=== PATIENT | female | born 1950 | race American Indian/Alaskan Native ===

== ENCOUNTER 2020-05-10 08:32 | Emergency (ER) | payer MEDICARE ==
--- NOTE | 2020-05-10 08:44 | Event Note ---
ED Screening Note ED Screening Note: diabetic - blood sugars high and she is dizzy and weak polyuria taking her meds did not make a pcp appnt last week This initial assessment/diagnostic orders/clinical plan/treatment(s) is/are subject to change based on patients health status, clinical progression and re- assessment by fellow clinical providers in the ED. Further treatment and workup at subsequent clinical providers discretion. Patient/guardian urged not to elope from the ED as their condition may be serious if not clinically assessed and managed. Initial orders include: labs/xray/ekg
[2020-05-10] MEDS ORDERED: SODIUM CHLORIDE 0.9% 1000 ML 1,000 ML IV ONE (09:14)
[2020-05-10 09:26] LABS: Basophils # (Auto) 0.1 K/mm3 (0.0-0.1); Basophils % (Auto) 0.9 % (0.0-1.8); Eosinophils # (Auto) 0.1 K/mm3 (0.0-0.4); Eosinophils % (Auto) 1.9 % (0.0-4.3); Hematocrit 41.6 % (30.3-42.9); Hemoglobin 13.9 gm/dl (10.1-14.3); Lymphocytes # (Auto) 2.2 K/mm3 (1.2-5.4); Lymphocytes % (Auto) 30.5 % (13.4-35.0); Mean Corpuscular HGB Conc 34 % (30-34); Mean Corpuscular Volume 88 fl (79-97); Monocytes # (Auto) 0.4 K/mm3 (0.0-0.8); Monocytes % (Auto) 5.1 % (0.0-7.3); Platelet Count 289 K/mm3 (140-440); Red Blood Count 4.72 M/mm3 (3.65-5.03); Red Cell Distribution Width 12.9 % (13.2-15.2)
[2020-05-10 09:37] VITALS: BP 126/54
[2020-05-10 09:45] LABS: Alanine Aminotransferase 14 units/L (7-56); Albumin 4.2 g/dL (3.9-5); Blood Urea Nitrogen 13 mg/dL (7-17); Calcium 9.9 mg/dL (8.4-10.2); Hemolysis Index 0
[2020-05-10 09:56] LABS: BUN/Creatinine Ratio 19
--- NOTE | 2020-05-10 10:03 | Cat Scan Report ---
NONENHANCED CT SCAN OF THE HEAD: INDICATION / CLINICAL INFORMATION: 69 years Female; headache. TECHNIQUE: Routine CT head without contrast. All CT scans at this location are performed using CT dos e reduction for ALARA by means of automated exposure control. COMPARISON: None. FINDINGS: BRAIN / INTRACRANIAL CONTENTS: No acute hemorrhage, mass effect, midline shift, hydrocephalus, or acu te, large territorial infarct. No chronic infarct or focal atrophy. Normal brain volume and ventricul ar/sulcal size for age. Focal low-attenuation white matter lesions probably due to chronic small vess el disease CRANIOCERVICAL JUNCTION: No significant abnormality ORBITS: No significant abnormality of visualized orbits. SINUSES / MASTOIDS: No significant abnormality of the visualized paranasal sinuses or mastoid air joleen ls. ADDITIONAL FINDINGS: None. IMPRESSION: No acute focal parenchymal lesion Signer Name: Chuy Bonner MD Signed: 05/10/2020 9:58 AM Workstation Name: [id number]
--- NOTE | 2020-05-10 11:29 | XRay Report ---
CHEST 1 VIEW INDICATION: hypertension. COMPARISON: None FINDINGS: Support devices: None. Heart: Within normal limits. Lungs/Pleura: No acute air space or interstitial disease. Additional findings: None. IMPRESSION: No acute findings. Signer Name: Jean Pike Jr, MD Signed: 05/10/2020 11:24 AM Workstation Name: [id number]
[2020-05-10 11:54] LABS: Bilirubin,Urine NEG (Negative); Blood,Urine NEG (Negative); Color,Urine Yellow (Yellow); Mucus,Urine FEW /HPF; Protein,Urine <15 mg/dL mg/dL (Negative); Urobilinogen,Urine < 2.0 mg/dL (<2.0)
--- NOTE | 2020-05-10 12:15 | Emergency Department Report ---
ED General Adult HPI - General Chief complaint: Hyperglycemia Stated complaint: DIABETES/BLOOD SUGAR HIGH Time Seen by Provider: 05/10/20 08:43 Source: patient Mode of arrival: Ambulatory Limitations: No Limitations - History of Present Illness Initial comments: This is a pleasant 59-year-old female who presents to the emergency department as she states that her sugar was elevated last night over 300. She also complains of a mild headache. She complains of some basic symptoms of weakness. She denies any problems with her coordination or gait. She denies any focal weakness or numbness nor change in speech. The describe dizziness is more a symptom of generalized weakness. She has had no visual change or any other focal neurological type symptoms. Patient takes Metformin 1000 mg twice daily. She has been previously on sliding scale insulin but not for some time. 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 -: Gradual, days(s) Location: head (Mild to moderate headache last night) Radiation: non-radiation (Mostly posterior) Quality: aching Consistency: intermittent Improves with: none Worsens with: none Associated Symptoms: denies other symptoms, weakness Treatments Prior to Arrival: none - Related Data Previous Rx's Medication Instructions Recorded Last Taken Type Insulin Regular, Human [Novolin R] 1 units SUB-Q BID #1 vial 05/10/20 Unknown Rx Allergies Allergy/AdvReac Type Severity Reaction Status Date / Time No Known Allergies Allergy Unverified 05/10/20 08:43 ED Review of Systems ROS: Stated complaint: DIABETES/BLOOD SUGAR HIGH Other details as noted in HPI Constitutional: weakness. denies: chills, fever Eyes: denies: eye pain, eye discharge, vision change ENT: denies: ear pain, throat pain Respiratory: denies: cough, shortness of breath, wheezing Cardiovascular: denies: chest pain, palpitations Endocrine: no symptoms reported Gastrointestinal: denies: abdominal pain, nausea, diarrhea Genitourinary: denies: urgency, dysuria, discharge Musculoskeletal: denies: back pain, joint swelling, arthralgia Skin: denies: rash, lesions Neurological: headache. denies: weakness, numbness, paresthesias, abnormal gait, vertigo Psychiatric: denies: anxiety, depression Hematological/Lymphatic: denies: easy bleeding, easy bruising ED Past Medical Hx - Past Medical History Hx Hypertension: Yes Hx Diabetes: Yes - Surgical History Hx Appendectomy: Yes Additional Surgical History: C SECTION - Social History Smoking Status: Never Smoker Substance Use Type: None - Medications Home Medications: Home Medications Medication Instructions Recorded Confirmed Last Taken Type Insulin Regular, Human [Novolin R] 1 units SUB-Q BID #1 vial 05/10/20 Unknown Rx ED Physical Exam - General Limitations: No Limitations General appearance: alert, in no apparent distress - Head Head exam: Present: atraumatic, normocephalic - Eye Eye exam: Present: normal appearance, PERRL, EOMI. Absent: scleral icterus - ENT ENT exam: Present: mucous membranes moist - Neck Neck exam: Present: normal inspection. Absent: tenderness, meningismus - Respiratory Respiratory exam: Present: normal lung sounds bilaterally. Absent: respiratory distress - Cardiovascular Cardiovascular Exam: Present: regular rate, normal rhythm. Absent: systolic murmur, diastolic murmur, rubs, gallop - GI/Abdominal GI/Abdominal exam: Present: soft, normal bowel sounds. Absent: distended, tenderness, guarding, rebound - Extremities Exam Extremities exam: Present: normal inspection, normal capillary refill. Absent: pedal edema, joint swelling, calf tenderness - Back Exam Back exam: Present: normal inspection - Neurological Exam Neurological exam: Present: alert, oriented X3, CN II-XII intact, normal gait, other (Cerebellar testing was normal). Absent: motor sensory deficit - Psychiatric Psychiatric exam: Present: normal affect, normal mood - Skin Skin exam: Present: warm, dry, intact, normal color. Absent: rash ED Course Vital Signs 05/10/20 05/10/20 08:46 09:31 Temperature 98.8 F 98.3 F Pulse Rate 84 70 Respiratory 20 18 Rate Blood Pressure 148/65 126/54 O2 Sat by Pulse 96 95 Oximetry - Reevaluation(s) Reevaluation #1: Patient was given some gentle IV fluids. She did not require any analgesia for her headache which was quite mild. She is mainly concerned about her sugar. She was found to have a slightly elevated lactic acid level. Blood cultures were sent. Urine culture was performed. Urinalysis did not suggest a focus nor did a chest x-ray. Repeat lactic acid level was 1.8 without the administration of any significant amount of fluid. I discussed the case in detail with the consulting hospitalist Dr. Meraz. He did not believe the patient had any criteria for admission or observation. I am comfortable with that. On reassessment the patient stated she was ready to go home. She is essentially asymptomatic at this time. 05/10/20 12:13 ED Medical Decision Making - Lab Data Result diagrams: 05/10/20 09:13 05/10/20 09:13 - EKG Data -: EKG Interpreted by Me EKG shows normal: sinus rhythm, axis (Left axis deviation/LAFB), intervals, QRS complexes, ST-T waves Rate: normal - EKG Data Interpretation: other (Low voltage) Critical care attestation.: If time is entered above; I have spent that time in minutes in the direct care of this critically ill patient, excluding procedure time. 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 This does not appear to be the case at this time. However these should be checked by her primary care doctor within 2 to 3 days. Return to the emergency department if your symptoms worsen or you develop any fever. Rx regular insulin for sliding scale use. Return any acute change or problem. Prescriptions: Insulin Regular, Human [Novolin R] 1 units SUB-Q BID #1 vial Referrals: KLARISSA GURROLA MD [Primary Care Provider] - 2-3 Days Usual, primary care [Other] - 2-3 Days Time of Disposition: 12:16
== END 2020-05-10 13:02 | disposition home or self-care (01) ==
LOC: ED 08:32
DX: E11.65 Type 2 diabetes mellitus with hyperglycemia (principal); R51.9 Headache, unspecified; I10 Essential (primary) hypertension; Z79.899 Other long term (current) drug therapy; Z98.890 Other specified postprocedural states
CPT/HCPCS: 36415; 70450; 71045; 80053; 81001; 82010; 82140; 82805; 82962; 84484; 85025; 87086; 93005; 96360; 96361; 99285; J7030